=== PATIENT | female | born 1975 | race Caucasian/White ===

== ENCOUNTER 2020-12-02 11:48 | Emergency (ER) | payer OTHER ==
[~2020-12-02] VITALS: Ht 177.8 cm; Wt 90.7 kg
[2020-12-02] MEDS ORDERED: AMLODIPINE BESYL5 MG PO (12:54)
[2020-12-02] MEDS ORDERED: Ventolin/Prove6.7 GM (12:54)
[2020-12-02] MEDS ORDERED: HYDCHL25 PO (12:54)
[2020-12-02] MEDS ORDERED: ESCI10 PO (12:54)
[2020-12-02 13:19] LABS: BASOPHILS ABSOLUTE AUTO 0.04 K/mm3 (0.00-0.23); BASOPHILS PERCENT AUTO 1 % (0-2); EOSINOPHILS ABSOLUTE AUTO 0.15 K/mm3 (0.00-0.68); EOSINOPHILS PERCENT AUTO 2 % (0-6); Hematocrit 41.1 % (33.0-51.0); IMMATURE GRAN ABSOLUTE AUTO 0.04 K/mm3 (0.00-0.10); IMMATURE GRAN PERCENT AUTO 1 % (0-1); LYMPHOCYTES ABSOLUTE AUTO 1.62 K/mm3 (0.84-5.20); LYMPHOCYTES PERCENT AUTO 21 % (21-46); MONOCYTES ABSOLUTE AUTO 0.59 K/mm3 (0.16-1.47); MONOCYTES PERCENT AUTO 8 % (4-13); Mean Corpuscular HGB 32.6 pg (26.0-34.0); Mean Corpuscular HGB Conc 34.1 g/dL (31.5-36.5); Mean Corpuscular Volume 96 fL (80-100); Mean Platelet Volume 9.8 fL (9.1-12.4); NEUTROPHILS ABSOLUTE AUTO 5.33 K/mm3 (1.96-9.15); NEUTROPHILS PERCENT AUTO 69 % (41-73); Platelet Count 305 K/mm3 (150-400); RDW Coefficient Variation 12.5 % (11.7-14.2); RDW Standard Deviation 44.2 fL (35.1-46.3); Red Blood Cell Count 4.29 M/mm3 (3.80-5.20); White Blood Cell Count 7.77 K/mm3 (4.00-11.30)
[2020-12-02 13:38] LABS: Alanine Aminotransfer (ALT/SGP 40 U/L (12-78); Albumin, Blood 3.8 g/dL (3.4-5.0); Alk Phos 108 U/L (50-136); Anion Gap 7 mmol/L (6-16); Aspartate Aminotrans (AST/SGOT 25 U/L (12-37); Bilirubin, Total 0.3 mg/dL (0.1-1.0); Blood Urea Nitrogen 11 mg/dL (8-24); Bun/Creatinine Ratio 17.7 (12.0-20.0); CO2, Blood 24 mmol/L (21-32); Chloride, Blood 107 mmol/L (98-108); Creatinine, Blood 0.62 mg/dL (0.40-1.00); Glomerular Filtration Rate >60 (60-); Glucose, Blood 100 mg/dL (70-99); Potassium, Blood 4.3 mmol/L (3.5-5.5); Sodium, Blood 138 mmol/L (136-145); Total Protein, Blood 7.8 g/dL (6.4-8.2); Troponin I <0.015 ng/mL (0.000-0.040)
[2020-12-02 16:17] LABS: Source, Urine Clean Catch
[2020-12-02 16:19] LABS: Appearance, Urine Clear (Clear); Bilirubin, Urine Neg (Neg); Blood, Urine 1+ (Neg); Color, Urine Yellow (P-Yellow); Glucose Qualitative, Urine Neg (Neg); Ketones, Urine Neg (Neg); Leukocyte Esterase, Urine Neg (Neg); Nitrite, Urine Neg (Neg); Protein, Urine 1+ (Neg); Specific Gravity, Urine 1.025 (1.003-1.022); Urobilinogen, Urine NORM (Normal)
[2020-12-02 16:40] LABS: White Blood Cells, Urine 0-2 /hpf (0-5)
[2020-12-02 16:41] LABS: Bacteria Rare /hpf; Squamous Epithelial Cells Few /hpf (Few)
[2020-12-02 20:02] LABS: Influenza A, PCR NEGATIVE (NEGATIVE); Influenza B, PCR NEGATIVE (NEGATIVE); Resp Syncytial Virus, PCR NEGATIVE (NEGATIVE); SARS-Cov-2 (COVID-19) PCR, MMC NEGATIVE (NEGATIVE)
[2020-12-02] MEDS ORDERED: Prednisone50 MG PO (20:52)
[2020-12-02] MEDS ORDERED: ALBU90OI INH (20:52)
[2020-12-02] MEDS ORDERED: Tessalon Perle100 MG PO (20:52)
== END 2020-12-02 21:11 | disposition home or self-care (01) ==
LOC: ER 11:48
PROVIDERS: Emergency Medicine; Physician Assistant
DX: J06.9 Acute upper respiratory infection, unspecified (principal); J45.901 Unspecified asthma with (acute) exacerbation; Z79.899 Other long term (current) drug therapy; Z20.822 Contact with and (suspected) exposure to COVID-19
CPT/HCPCS: 0241U; 36415; 71045; 80053; 81001; 83880; 84484; 85025; 85379; 93005; 93010; 94640; 99284-25; A9270; J7512

== ENCOUNTER 2021-11-14 09:41 | Day surgery (SDC) | payer OTHER ==
[~2021-11-14] VITALS: Ht 175.3 cm; Wt 117.9 kg
[~2021-11-14 09:41] MED LIST: ALBU90OI INH; AMLODIPINE BESYL5 MG PO; ESCI10 PO; FERSU300; HYDCHL25 PO; IBUP800; PRAM.5; Prednisone50 MG PO; Tessalon Perle100 MG PO; Ventolin/Prove6.7 GM
[2021-11-14] MEDS ORDERED: POTCHL20ER PO (10:20)
[2021-11-14] MEDS ORDERED: FLONASE SENSIM5.9 M1 NS (10:20)
[2021-11-14] MEDS ORDERED: MELO7.5 (10:21)
--- NOTE | 2021-11-14 10:27 | NUR ---
11/14/21 [employer] Mary Rincon CALL LIGHT WITHIN REACH
--- NOTE | 2021-11-14 11:27 | NUR ---
11/14/21 1127 Bryanna Mccracken 10CC OF LOCAL USED BY
== END 2021-11-14 12:12 | disposition home or self-care (01) ==
LOC: ORSCSDS 09:41
PROVIDERS: Obstetrics & Gynecology
PROC: 0UBC7ZX Excision of Cervix, Via Natural or Artificial Opening, Diagnostic (ICD-10-PCS; principal; 2021-11-14 11:00)
DX: N87.1 Moderate cervical dysplasia (principal); I10 Essential (primary) hypertension; F17.210 Nicotine dependence, cigarettes, uncomplicated; J45.909 Unspecified asthma, uncomplicated; E66.01 Morbid (severe) obesity due to excess calories; Z68.37 Body mass index [BMI] 37.0-37.9, adult; Z79.899 Other long term (current) drug therapy
CPT/HCPCS: 88307; J0171; J0690; J1885; J2250; J2704; J3010; J7120

== ENCOUNTER → 2023-02-25 | Outpatient (CLI) | payer OTHER ==
[~2023-02-25] MED LIST changes: +FLONASE SENSIM5.9 M1 NS; +MELO7.5; +POTCHL20ER PO
== END | disposition home or self-care (01) ==
LOC: LAB SHORT 14:17 → LAB 14:17
DX: R30.0 Dysuria (principal)
CPT/HCPCS: 87086